=== PATIENT | female | born 1975 ===

== ENCOUNTER 2024-08-23 12:52 | Outpatient (CLI) | payer OTHER, SELFPAY ==
--- NOTE | ~2024-08-23 | MR_ITS ---
MRI of the brain Clinical History: Multiple sclerosis Technique: Axial and sagittal T1-weighted images were acquired. These were followed by axial T2-weigh aniya, diffusion weighted, gradient, and FLAIR images. Following intravenous administration of 15 cc Mu ltiHance gadolinium, T1-weighted fat-sat imaging was performed in the axial, coronal, and sagittal pl anes. Findings: No acute infarct, intracranial hemorrhage or mass lesion. There are a few focal white matte r lesions with radial orientation, suggestive of the myelin plaques of multiple sclerosis. Ventricles and subarachnoid spaces are unremarkable. Orbits are unremarkable. Paranasal sinuses and m astoid air cells are clear. Major intracranial flow voids are intact. Sagittal midline structures are intact. No abnormal postcontrast enhancement identified. IMPRESSION: Several white matter lesions consistent with demyelinating plaques of multiple sclerosis. No active/e nhancing plaque seen. Reviewed, dictated and finalized at location . IMPRESSION: Several white matter lesions consistent with demyelinating plaques of multiple sclerosis. No active/enhancing plaque seen.
== END 2024-08-23 12:53 | disposition home or self-care (01) ==
DX: G35 Multiple sclerosis (principal); E55.9 Vitamin D deficiency, unspecified
CPT/HCPCS: 70553; A9577